=== PATIENT | male | born 1995 | race Hispanic/Latino ===

== ENCOUNTER 2021-12-26 13:19 | Emergency (ER) | payer OTHER ==
[~2021-12-26] VITALS: Ht 162.6 cm; Wt 61.2 kg
[2021-12-26 13:50] VITALS: BP 120/80
[2021-12-26] MEDS ORDERED: MAGN296S76 PO (15:25)
[2021-12-26] MEDS ORDERED: POLY17PO4 PO (15:25)
[2021-12-26] MEDS ORDERED: L.AC1CAP6 PO (15:25)
== END 2021-12-26 15:37 | disposition home or self-care (01) ==
LOC: EDH 13:19
DX: K59.00 Constipation, unspecified (principal); Z79.899 Other long term (current) drug therapy
CPT/HCPCS: 74018